=== PATIENT | female | born 1980 | race Caucasian/White ===

== ENCOUNTER 2019-02-16 05:45 | Day surgery (SDC) | payer BC ==
[~2019-02-16] VITALS: Ht 170.2 cm; Wt 64.5 kg
[2019-02-16 06:04] LABS: HEMATOCRIT 39.5 % (36.0-48.0); HEMOGLOBIN 13.5 g/dL (12-16); MCH 30.6 pg (26.0-34.0); MCHC 34.2 g/dL (31.0-37.0); MCV 89.6 fL (80.0-100.0); MEAN PLATELET VOLUME 9.9 fL (7.4-10.4); RBC 4.41 10x6/uL (4.00-5.40); RDW 12.9 % (11.5-14.5); WBC 6.2 10x3/uL (4.8-10.8)
[2019-02-16] MEDS ORDERED: CARAFATE1 G PO (06:41)
[2019-02-16] MEDS ORDERED: PROTONIX40 MG PO (06:41)
[2019-02-16 06:46] VITALS: Ht 170.2 cm; Wt 64.5 kg
[2019-02-16 06:49] LABS: HCG URINE NEGATIVE (NEGATIVE)
--- NOTE | 2019-02-17 17:14 | OP ---
PATIENT NAME: TAI SANTANA MEDICAL RECORD: [id number] LOCATION:[facility] ADMISSION DATE: SURGEON: FARHAT LONDON DO DATE OF OPERATION: 02/16/2019 PROCEDURE: EGD with biopsies. INDICATION FOR PROCEDURE: Nausea and vomiting, diarrhea, left upper quadrant abdominal pain, pain provoked by eating. SCOPE: Olympus video gastroscope. MEDICATIONS: Propofol 200 mg IV per anesthesia. ESTIMATED BLOOD LOSS: Minimal. COMPLICATIONS: None. FINDINGS: Informed consent was given. The patient was made comfortable with the above medication. After reaching an adequate level of sedation by slow IV push, the patient was placed on her left side. The endoscope was advanced under direct visualization through the mouth to the second portion of the duodenum. The entire esophagus and GE junction appeared normal. Cold forceps biopsies were taken from the midesophagus to rule out the presence of eosinophils. The endoscope was advanced beyond the GE junction into the stomach and retroflexed to view the cardia, which appeared normal. The entire stomach appeared normal. Random cold forceps biopsies were taken to submit for histopathology and to rule out the presence of H. pylori. The endoscope was advanced beyond the pylorus into the duodenum, which appeared normal to the second portion. The endoscope was then withdrawn from the patient. The patient tolerated the procedure well and there were no complications. IMPRESSION: Normal EGD with biopsies taken from midesophagus, stomach, and small bowel. PLANS AND RECOMMENDATIONS: 1. Discharge home when recovery parameters are met. 2. Continue current diet. 3. Continue current medications. 4. We will order a PIPIDA scan to evaluate the gallbladder function. 5. Further workup and recommendations will be made after PIPIDA. TRANSINT:[id number] Voice Confirmation ID: [id number] DOCUMENT ID: [id number] FARHAT LONDON DO at 1714 CC: [id number] DICTATION DATE: 02/16/19 0744 [facility] OPERATOR: 02/16/19 1440 [facility] 02/16/19 [facility] [address] [place] [address]
== END 2019-02-16 08:30 | disposition home or self-care (01) ==
LOC: D.OPS 05:45
PROVIDERS: Anesthesiology; ATTEND Internal Medicine Gastroenterology
DX: K29.50 Unspecified chronic gastritis without bleeding (principal); K20.8 Other esophagitis; Z01.812 Encounter for preprocedural laboratory examination

== ENCOUNTER → 2019-03-12 08:54 | Outpatient (CLI) | payer BC ==
[2019-02-16 06:46] VITALS: BMI 22.3
[~2019-03-12 08:54] MED LIST: CARAFATE1 G PO; PROTONIX40 MG PO
== END | disposition home or self-care (01) ==
LOC: D.NM 08:54
PROVIDERS: ATTEND Internal Medicine Gastroenterology
DX: R11.2 Nausea with vomiting, unspecified (principal); R19.7 Diarrhea, unspecified; R10.9 Unspecified abdominal pain

== ENCOUNTER 2019-03-27 05:55 | Day surgery (SDC) | payer BC | END 2019-03-27 13:40 | disposition home or self-care (01) | LOC: D.OPS 05:55 | DX: K81.1 Chronic cholecystitis (principal); Z01.812 Encounter for preprocedural laboratory examination ==